=== PATIENT | male | born 1990 | race Two or more races ===

== ENCOUNTER 2023-01-17 00:24 | Emergency (ER) | payer OTHER ==
[~2023-01-17] VITALS: Ht 162.6 cm; Wt 88.5 kg
[2023-01-17] MEDS ORDERED: FOLIC ACID20 MG PO (00:29)
[2023-01-17] MEDS ORDERED: TOPROL XL25 M1 PO (00:29)
[2023-01-17] MEDS ORDERED: BUSPIRONE HCL7.5 MG PO (00:29)
== END 2023-01-17 02:41 | disposition home or self-care (01) ==
LOC: ER 00:24
DX: S60.221A Contusion of right hand, initial encounter (principal); X58.XXXA Exposure to other specified factors, initial encounter; Y93.89 Activity, other specified; Y92.017 Garden or yard in single-family (private) house as the place of occurrence of the external cause; Y99.9 Unspecified external cause status

== ENCOUNTER 2023-06-27 14:53 | Emergency (ER) | payer OTHER ==
[~2023-06-27] VITALS: Ht 162.6 cm; Wt 86.2 kg
[~2023-06-27 14:53] MED LIST: BUSPIRONE HCL7.5 MG PO; FOLIC ACID20 MG PO; TOPROL XL25 M1 PO
[2023-06-27] MEDS ORDERED: VITAMIN B-121000 MC1 PO (15:55)
[2023-06-27] MEDS ORDERED: SUCRALFATE1 GM PO (15:56)
[2023-06-27] MEDS ORDERED: GABAPENTIN100 M2 PO (15:56)
[2023-06-27] MEDS ORDERED: FOLIC ACID1 MG PO (15:56)
[2023-06-27] MEDS ORDERED: LIDOCAINE HCL 1% 10ML VIAL IJ ONE (16:15)
[2023-06-27 17:02] LABS: HEMATOCRIT 35.1 % (39.0-48.0); MEAN CORPUSCULAR HEMOGLOBIN 35.6 pg (27.00-32.0); MEAN CORPUSCULAR HGB CONC 34.2 g/dl (32.0-36.0); PLATELET COUNT 169 K/uL (150-450); RED BLOOD COUNT 3.37 M/uL (4.00-6.00); RED CELL DISTRIBUTION WIDTH 16.1 % (11.5-14.5)
[2023-06-27 17:06] LABS: PH,URINE 6.5 (5.0-8.0); URINE APPEARANCE Clear; URINE BILIRRUBIN Negative (NEGATIVE); URINE BLOOD Negative; URINE COLOR Dark Yellow; URINE GLUCOSE Negative (NEGATIVE); URINE LEUKOCYTE Negative; URINE NITRATE Negative; URINE PROTEIN Negative (NEGATIVE)
[2023-06-27 17:07] LABS: URINE EPITHELIAL CELLS 1.5 uL (0.0-38.8); URINE WBC 4.5 uL (0.0-23.2)
[2023-06-27 17:10] LABS: URINE RBC 0.4 uL (0.0-20.8)
[2023-06-27 17:22] LABS: ALBUMIN 2.9 gm/dL (3.4-5.0); CALCIUM 9.1 mg/dL (8.5-10.1); CREATININE SERUM 0.63 mg/dL (0.70-1.30); GFR 147.59; GLOBULINA 4.1 G/DL (2.4-3.5); POTASSIUM 3.52 mEq/L (3.5-5.1)
[2023-06-27 17:30] LABS: BILIRUBIN TOTAL 12.2 mg/dL (0.3-1.2)
[2023-06-27 18:48] LABS: AMYLASE 110 U/L (25-115)
[2023-06-27 18:52] LABS: LIPASE 103 U/L (13-75)
[2023-06-27 21:30] LABS: INR 1.22; PARTIAL THROMBOPLASTIN TIME 28.5 SECONDS (22.0-34.0); PROTHROMBIN TIME 12.6 SECONDS (9.0-11.5)
[2023-06-27] MEDS ORDERED: KETOROLAC TROMETHAMINE 30 MG VIAL IM ONE (22:00)
== END 2023-06-27 22:19 | disposition home or self-care (01) ==
LOC: ER 14:53
PROVIDERS: General Practice
DX: S01.82XA Laceration with foreign body of other part of head, initial encounter (principal); W20.8XXA Other cause of strike by thrown, projected or falling object, initial encounter; Y93.89 Activity, other specified; Y92.89 Other specified places as the place of occurrence of the external cause; I10 Essential (primary) hypertension; E80.6 Other disorders of bilirubin metabolism